=== PATIENT | male | born 1995 ===

== ENCOUNTER 2018-12-14 10:10 | Emergency (ER) | payer OTHER ==
[2018-12-14 10:27] VITALS: BP 134/77; PULSE 92; RESP 20; TEMP 98.4; O2SAT 98
--- NOTE | 2018-12-14 11:40 | C.PDOC ---
History Of Present Illness Patient is a 23 year old male who presents to the ED requesting psychiatric medication refills. Patient states that he has enough medication for one more day and recently arrived from [place] so he does not have a PMD or psychiatrist. He denies any SI/HI or physical complaints. Time Seen by Provider: 12/14/18 10:57 Chief Complaint (Nursing): Med Refill History Per: Patient History/Exam Limitations: no limitations Recent travel outside of the [place]: No Additional History Per: Patient Past Medical History Reviewed: Historical Data, Nursing Documentation, Vital Signs Vital Signs: Last Vital Signs Temp 98.4 F 12/14/18 10:26 Pulse 92 H 12/14/18 10:26 Resp 20 12/14/18 10:26 BP 134/77 12/14/18 10:26 Pulse Ox 98 12/14/18 10:26 - Medical History PMH: Personality Disorder, Schizophrenia Surgical History: No Surg Hx Family History: States: No Known Family Hx - Social History Hx Alcohol Use: No Hx Substance Use: No - Immunization History Hx Tetanus Toxoid Vaccination: No Hx Influenza Vaccination: Yes Hx Pneumococcal Vaccination: No Review Of Systems Psych: Negative for: Suicidal ideation, Other (Homicidal ideation) Physical Exam - Physical Exam Appears: Non-toxic, No Acute Distress, Other (bizarre affect) Skin: Normal Color, Warm, Dry Head: Atraumatic, Normacephalic Neck: Normal ROM, Supple Chest: Symmetrical Cardiovascular: Rhythm Regular Respiratory: Normal Breath Sounds, No Rales, No Rhonchi, No Wheezing Neurological/Psych: Oriented x3 ED Course And Treatment O2 Sat by Pulse Oximetry: 98 (on RA) Pulse Ox Interpretation: Normal Progress Note: Plan: Restoril 30mg PO. Patient referred to f/u with [facility] after discharge and set up an appt there Disposition Counseled Patient/Family Regarding: Diagnosis, Need For Followup - Disposition Referrals: [facility] [Outside] Disposition: HOME/ ROUTINE Disposition Time: 11:45 Condition: STABLE Additional Instructions: FOLLOW UP AT [facility] IMMEDIATELY AFTER DISCHARGE RETURN TO EMERGENCY ROOM IF YOU HAVE ANY CONCERNING SYMPTOMS [facility]GU[facility]SE IN[facility]ATAMENTE [facility] DESPUS DE LA DESCARGA VUELVA A LA TASHA DE EMERGENCIA SI TIENE ALGUNA INFORMACIN SOBRE LOS SNTOMAS Forms: [employer] (Citizen Of [place]), General Discharge Instructions - Clinical Impression Clinical Impression: General medical exam - Scribe Statement The provider has reviewed the documentation as recorded by the Scribe Elba Hannah All medical record entries made by the Scribe were at my direction and personally dictated by me. I have reviewed the chart and agree that the record accurately reflects my personal performance of the history, physical exam, medical decision making, and the department course for this patient. I have also personally directed, reviewed, and agree with the discharge instructions and disposition.
== END 2018-12-14 11:59 | disposition home or self-care (01) ==
LOC: C.ER 10:10
DX: Z00.00 Encounter for general adult medical examination without abnormal findings (principal)

== ENCOUNTER 2019-02-24 11:22 | Emergency (ER) | payer MEDICAID ==
[2019-02-24 11:35] VITALS: PULSE 90; RESP 16; O2SAT 98
[2019-02-24] MEDS ORDERED: Sodium Chloride 0.9% 1,000 ML IV STA (13:05)
[2019-02-24] MEDS ORDERED: Dexamethasone 4 mg/1 ml IVP STA (13:05)
[2019-02-24] MEDS ORDERED: Sodium Chloride 0.9% 1,000 ML ONE (13:12)
--- NOTE | 2019-02-24 14:00 | C.PDOC ---
History Of Present Illness 23-year-old male presents to the ED for evaluation of sore throat and fever which began 2-3 days ago. Patient also reports poor appetite. He denies cough, nausea, vomiting. Time Seen by Provider: 02/24/19 12:50 Chief Complaint (Nursing): ENT Problem History Per: Patient History/Exam Limitations: None Onset/Duration Of Symptoms: Days (2-3) Current Symptoms Are (Timing): Still Present Past Medical History Reviewed: Historical Data, Nursing Documentation, Vital Signs Vital Signs: Last Vital Signs Temp 98.1 F 02/24/19 11:32 Pulse 90 02/24/19 11:32 Resp 16 02/24/19 11:32 BP 126/78 02/24/19 11:32 Pulse Ox 98 02/24/19 11:32 Primary Care Provider: Carlos Flores Surg - Medical History PMH: No Chronic Diseases, Personality Disorder, Schizophrenia Surgical History: No Surg Hx Family History: States: Unknown Family Hx - Social History Hx Alcohol Use: No Hx Substance Use: No - Immunization History Hx Tetanus Toxoid Vaccination: No Hx Influenza Vaccination: Yes Hx Pneumococcal Vaccination: No Review Of Systems Constitutional: Positive for: Fever, Other (poor appetite ) ENT: Positive for: Throat Pain Respiratory: Negative for: Cough Physical Exam - Physical Exam Appears: Non-toxic, No Acute Distress Skin: Normal Color, Warm, Dry Head: Atraumatic, Normacephalic Eye(s): bilateral: Normal Inspection Ear(s): Bilateral: Normal Nose: Normal, No Discharge Oral Mucosa: Moist Throat: Erythema (tonsillar ), Exudate Lymphatic: Adenopathy (cervical ) Chest: Symmetrical, No Deformity, No Tenderness Cardiovascular: Rhythm Regular, No Murmur Respiratory: Normal Breath Sounds, No Rales, No Rhonchi, No Wheezing Gastrointestinal/Abdominal: Soft, No Tenderness, No Guarding, No Rebound Extremity: Normal ROM, Capillary Refill (less than 2 seconds ) Neurological/Psych: Oriented x3, Normal Speech, Normal Cognition ED Course And Treatment O2 Sat by Pulse Oximetry: 98 (on RA ) Pulse Ox Interpretation: Normal Progress Note: Rapid Strep test ordered, resulted negative. Monospot ordered, resulted positive. Toradol IVP, Decadron IVP and IV Fluids given. On reassessment, patient is resting comfortably, showing no signs of distress, and is stable for discharge. Patient is advised to f/u with PMD within 1-2 days for further evaluation. Disposition - Disposition Disposition: HOME/ ROUTINE Disposition Time: 13:54 Condition: STABLE Additional Instructions: Follow up with PMD within 1-2 days. Return to ED if feel worse. Prescriptions: Methylprednisolone [Medrol] 4 mg PO DAILY #42 tab Ibuprofen [Motrin Tab] 600 mg PO Q8 #30 tab Famotidine [Pepcid] 20 mg PO BID #60 tab Instructions: Mononucleosis (DC), Mononucleosis Test Forms: [email or web address] ([place]ian) Print Language: ENGLISH - Clinical Impression Clinical Impression: Infectious mononucleosis - PA / GROUP COUNSELOR / Resident Statement MD/DO has reviewed & agrees with the documentation as recorded. - Scribe Statement The provider has reviewed the documentation as recorded by the Scribe (Farzaneh Laboy) All medical record entries made by the Scribe were at my direction and personally dictated by me. I have reviewed the chart and agree that the record accurately reflects my personal performance of the history, physical exam, medical decision making, and the department course for this patient. I have also personally directed, reviewed, and agree with the discharge instructions and disposition.
[2019-02-24 14:28] VITALS: BP 111/69; TEMP 99.1
== END 2019-02-24 14:27 | disposition home or self-care (01) ==
LOC: C.ER 11:22
DX: B27.90 Infectious mononucleosis, unspecified without complication (principal)
CPT/HCPCS: 86308; 87070; 87430; 96361; 96374; 96375; 99283; J1100; J1885; J7030